=== PATIENT | female | born 2000 | race African-American/Black ===

== ENCOUNTER 2021-10-12 17:07 | Emergency (ER) | payer OTHER, SELFPAY ==
[2021-10-12 17:52] VITALS: BP 134/74; PULSE 105; RESP 19; TEMP 36.6; O2SAT 98; BMI 24.4
--- NOTE | 2021-10-12 18:15 | ED.ANXIETY ---
HPI - Anxiety General Chief Complaint: Anxiety Stated Complaint: anxiety Time Seen by Provider: 10/12/21 17:27 Source: patient Mode of arrival: ambulatory History of Present Illness HPI narrative: 21-year-old female with a past medical history of anxiety, costochondritis, presenting to the ED complaining of increased anxiety/panic attacks secondary to work conditions. States anxiety is preventing patient from performing work duties. Denies currently being on anxiolytic. Denies SI/HI, CP/SOB, EtOH or illicit drug use MD complaint: anxiety Onset (ago): day(s) Related Data Previous Rx's Medication Instructions Recorded hydroxyzine pamoate 25 mg capsule 25 mg PO TID PRN #10 cap 10/12/21 (Vistaril) Allergies Allergy/AdvReac Type Severity Reaction Status Date / Time No Known Allergies Allergy Verified 10/12/21 17:55 Review of Systems Review of Systems: Constitutional: No Fever, No Chills, No Fatigue, No Malaise ENT/Mouth: No Nasal Congestion, No sore throat, No Rhinorrhea, No Swallowing Difficulty Eyes: No Eye Pain, No Swelling, No Redness Cardiovascular: No Chest Pain, No SOB Respiratory: No Cough, No Sputum, No Dyspnea Gastrointestinal: No Nausea, No Vomiting,No Abdominal pain Genitourinary: No Dysuria, No Flank Pain Musculoskeletal: No joint pain, No Myalgias, No Joint Swelling Skin: No Skin Lesions, No rash Neuro: No Weakness, No Dizziness, No Headache Psych: + Anxiety/Panic, + Depression, No SI/HI/AH/VH, No Social Issues Yes all other systems are reviewed and are negative [facility] Past Medical History Attestation statement: The following information was validated with the patient. Medical History Anxiety Costal chondritis Social History Social History Advance Directives: No Advance Directives Information Provided: No Physical Exam Vital Signs: Vital Signs: Last Vital Signs Temp 98 F 10/12/21 17:52 Pulse 105 H 10/12/21 17:52 Resp 19 10/12/21 17:52 BP 134/74 10/12/21 17:52 Pulse Ox 98 10/12/21 17:52 BMI result Body Mass Index 24.4 Const: General: cooperative, healthy appearing, no acute distress, alert and awake Orientation/consciousness: patient oriented x3 Limitations: no limitations HEENT: Head: Yes normal to inspection and Yes atraumatic Ears: hearing grossly normal bilaterally General nose exam: Normal external nose present Face and sinus: Yes normal facial exam Eyes: General: appearance normal, both eyes and all related structures EOM: EOMs intact bilaterally Neck: Neck: Yes normal visual inspection and Yes no meningeal signs Resp: Effort & Inspection: normal respiratory effort and no respiratory distress Cardio: Rate: regular rate Skin: Rashes: no rashes Wounds: no wounds Neuro: General: patient oriented x3, gait normal, tone normal, moves all extremities and no meningeal signs Gait exam (Neuro): Normal gait present Extrem: General: Yes normal to inspection MDM - Anxiety MDM Narrative Medical decision making narrative: 21-year-old female with a past medical history of anxiety, costochondritis, presenting to the ED complaining of increased anxiety/panic attacks secondary to work conditions. On exam mildly tachycardic likely from anxiety, and NAD/nontoxic-appearing, denies SI/HI. Discussed with patient she needs to establish care with a therapist/psychiatrist and PCP. Will give trial of Vistaril Differential Diagnosis Differential diagnosis: Likely panic disorder and acute anxiety Medical Records Attestation: I reviewed the patient's medical records. Lab Data Attestation: I reviewed the patient's lab results. Discharge Plan Discharge Clinical Impression: Acute anxiety Patient Disposition: Home, Self-Care Instructions: Panic Disorder (ED), Anxiety (ED) Additional Instructions: [address] [address] [facility] for follow-up. You should also establish care with a primary care doctor Hydroxyzine will help with anxiety, take as needed. You need to follow-up with a therapist/psychiatrist. If you have thoughts of hurting herself or others please return to the emergency department Prescriptions: New hydroxyzine pamoate [Vistaril] 25 mg capsule 25 mg PO TID PRN (Reason: anxiety) Qty: 10 0RF Referrals: Brendon Cline PA-C [Physician Engineering Coordinator] - Pee Morrison MD [Physician] - Naye العراقي [Mental Health Ice Cream Maker] - Stand Alone Forms: Work/School Release
== END 2021-10-12 19:00 | disposition home or self-care (01) ==
PROVIDERS: Emergency Provider Emergency Medicine; PCP Internal Medicine
DX: F41.9 Anxiety disorder, unspecified (principal); Z56.6 Other physical and mental strain related to work
CPT/HCPCS: 99283